=== PATIENT | male | born 1995 | race African-American/Black ===

== ENCOUNTER 2018-04-28 09:41 | Emergency (ER) | payer MEDICAID ==
[~2018-04-28] VITALS: Ht 188 cm; Wt 71.0 kg
[2018-04-28] MEDS ORDERED: METHYLPREDNISOLONE SOD SUCC 125 MG/2 ML VIAL IV STA (10:55)
[2018-04-28] MEDS ORDERED: ALBUTEROL (0.083%) 2.5MG/3ML NEB HHN STA (10:55)
[2018-04-28] MEDS ORDERED: MAGNESIUM 2 G PREMIX 50 ML IV STA (10:55)
[2018-04-28] MEDS ORDERED: IPRATROPIUM BROMIDE (0.02%) 0.5MG/2.5ML NEB HHN STA (10:55)
[2018-04-28] MEDS ORDERED: SODIUM CHLORIDE 0.9% 1,000 ML IV ONE (10:55)
[2018-04-28] MEDS ORDERED: PREDNISONE 20MG TABLET PO ONE (12:00)
[2018-04-28 13:14] VITALS: BP 111/76
== END 2018-04-28 13:15 | disposition home or self-care (01) ==
LOC: ER 09:41
DX: J45.901 Unspecified asthma with (acute) exacerbation (principal)
CPT/HCPCS: 71045; 94644; 96365; 96375; 99285; J2930; J3475; J7030; J7512; J7611

== ENCOUNTER 2021-12-03 20:44 | Emergency (ER) | payer MEDICAID ==
[~2021-12-03] VITALS: Ht 188 cm; Wt 91.0 kg
[2021-12-03 20:54] VITALS: BP 126/74
[2021-12-03] MEDS ORDERED: AMOX-494 MT (21:53)
[2021-12-03] MEDS ORDERED: IBUP-2029 MT (21:53)
== END 2021-12-03 21:54 | disposition home or self-care (01) ==
LOC: ER 20:44
DX: K04.01 Reversible pulpitis (principal); J45.909 Unspecified asthma, uncomplicated
CPT/HCPCS: 99283